=== PATIENT | female | born 1940 | race American Indian/Alaskan Native ===

== ENCOUNTER 2021-05-14 08:59 | Outpatient (CLI) | payer MEDICARE ==
[2021-05-16 05:52] LABS: Albumin 3.8 g/dL (3.8-4.8)
== END 2021-05-14 09:00 | disposition home or self-care (01) ==
LOC: LAB 08:59
PROVIDERS: ATTEND Specialist
DX: G61.9 Inflammatory polyneuropathy, unspecified (principal); R53.83 Other fatigue
CPT/HCPCS: 36415; 82607; 83921; 84165; 86334; 86592